=== PATIENT | male | born 2000 | race Caucasian/White ===

== ENCOUNTER 2024-06-07 15:04 | Emergency (ER) | payer SELFPAY ==
[~2024-06-07] VITALS: Ht 177.8 cm; Wt 69.0 kg
[2024-06-07 15:13] VITALS: O2SAT 98
[2024-06-07] MEDS ORDERED: LACTATED RINGERS 1,000 ML IV SCH (16:15)
[2024-06-07] MEDS: METOCLOPRAMIDE HCL 10MG/2ML VIAL IV ONE (16:15)
[2024-06-07] MEDS: ACETAMINOPHEN 325MG TABLET PO ONE (16:35)
[2024-06-07 18:00] VITALS: BP 112/79; PULSE 88; RESP 16; TEMP 36.39180; O2SAT 100
[2024-06-07] MEDS: KETOROLAC 15MG/ML VIAL IV ONE (18:45)
== END 2024-06-07 16:22 ==
LOC: ER 15:04
DX: R51.9 Headache, unspecified (principal)
CPT/HCPCS: 99284; 70450; J2765